=== PATIENT | male | born 1985 | race Two or more races ===

== ENCOUNTER 2021-06-23 09:20 | Day surgery (SDC) | payer BC ==
[~2021-06-23] VITALS: Ht 180.3 cm; Wt 110.0 kg
[2021-06-23] MEDS ORDERED: PROPOFOL 10 MG/ML (20ML) VIAL. IV ONE (09:33)
[2021-06-23] MEDS ORDERED: fentaNYL PF VIAL 100 MCG/2 ML VIAL ONE ×2 (09:34→12:50)
[2021-06-23] MEDS ORDERED: ROCURONIUM 50 MG/5 ML VIAL. ONE (09:34)
[2021-06-23] MEDS ORDERED: ONDANSETRON PF 4 MG/2 ML VIAL. ONE (09:36)
[2021-06-23] MEDS ORDERED: DEXAMETHASONE SOD PHOS 4 MG/ML VIAL ONE (09:36)
[2021-06-23 09:43] VITALS: BP 146/77
--- NOTE | 2021-06-23 09:52 | NUR ---
1ml IV given from spy kit
[2021-06-23] MEDS ORDERED: KETAMINE HCL IN NACL, ISO-OSM 50 MG/5 ML SYRINGE ONE (11:19)
[2021-06-23] MEDS ORDERED: BUPIVACAINE-EPI 0.25%-1:200000 MPF 30 ML VIAL. ONE (11:24)
[2021-06-23] MEDS ORDERED: SURGICEL HEMOSTAT 4X8 EACH. ONE (11:24)
[2021-06-23] MEDS ORDERED: DEXMEDETOMIDINE 200 MCG/2 ML VIAL. ONE (11:30)
--- NOTE | 2021-06-23 12:07 | PDOC4 ---
Operative Note Operative Note Date: June 232021 at 12:05 PM Preoperative diagnosis: Chronic cholecystitis cholelithiasis Postoperative diagnosis: Same Procedure: Laparoscopic cholecystectomy fluorescein cholangiography Surgeon: Akbar Specimen: Gallbladder Dictation: Patient is a 36-year-old male with right upper quadrant abdominal pain and the scan showing gallstones and mildly thickened gallbladder wall consistent with chronic cholecystitis. Procedure of laparoscopic cholecystectomy was explained to the patient detail risk benefits were also discussed including bleeding infection injury to intra-abdominal contents pus necessitating further open operation alternatives this procedure also discussed with patient who seemed to understand and gave a verbal written consent to have procedure performed. Patient was taken to the operating room placed in the supine position general anesthesia was initiated once patient was sleeping intubated his abdomen was prepped and draped in usual sterile fashion using ChloraPrep. Area just below the umbilicus was injected with quarter percent Marcaine with epinephrine incision was made 11 blade scalpel and a varies needle was placed within the abdomen creating pneumoperitoneum once this was complete the millimeter port was placed in a 5 mm camera was placed within the abdomen which was inspected no other abnormalities were noted. A 5 mm port was placed in the epigastrium a 5 mm port was placed in the right midabdomen and 5 mm ports placed in the right lateral abdomen all under direct visualization. The dome of the gallbladder is grasped retracted cephalad there was some adhesions to the body of the gallbladder these were taken down with blunt dissection the infundibulum the gallbladder is grasped tract laterally exposing the triangle adherent tissues the triangle were taken down exposing the cystic duct and cystic artery the fluorescein cholangiography was performed which showed dye within the cystic duct transversing to the common with no evidence of obstruction. The cystic duct was doubly clipped and transected the cystic artery was also clipped and transected the gallbladder was taken off the liver with hook electrocautery placed in Endo Catch bag moving the umbilicus right upper quadrant was irrigated and suctioned dry hemostasis deemed be appropriate the pneumoperitoneum was reduced all ports were removed the fascial defect at the umbilicus was closed with a [id number]-bhavs 0 Vicryl suture and the skin was reapproximated all port sites for subcuticular Monocryl Mastisol Steri-Strips and island dressings were applied. Patient was awakened and extubated in the operating room taken to recovery in stable condition all sponge instrument needle counts listed as correct estimated blood loss 20 mL CHAVO MCCLURE MD Jun 23, 2021 12:07
[2021-06-23] MEDS ORDERED: OXYC-325 PO (12:08)
--- NOTE | 2021-06-23 12:10 | DISCH ---
DISCHARGE INSTRUCTIONS Condition on Discharge Condition on Discharge: Stable Activity After Discharge Activity Instructions for Disc: Avoid exertion Other activity instructions: No lifting more than 20 pounds for 2 weeks Diet after Discharge Diet after Discharge: Low Fat Wound Incision Care Other wound/incision instructi: May shower in 24 hours Contacting the after DC Call your doctor for: If your condition worsens Follow-Up Follow up with: Dr. Mcclure in 2 CHAVO MCCLURE MD Jun 23, 2021 12:10
[2021-06-23] MEDS ORDERED: PROCHLORPERAZINE 10 MG/2 ML VIAL. IVP PRN (12:15)
[2021-06-23] MEDS ORDERED: IV RINGERS,LACTATED 1000ML 1,000 ML IV SCH (12:15)
[2021-06-23] MEDS ORDERED: HYDROmorphone 2 MG/ML INJ. IVP PRN (12:15)
[2021-06-23] MEDS ORDERED: fentaNYL PF VIAL 100 MCG/2 ML VIAL IVP PRN (12:15)
[2021-06-23] MEDS ORDERED: HYDROmorphone 2 MG/ML INJ. ONE (12:18)
[2021-06-23] MEDS ORDERED: oxyCODONE/APAP 5/325 1 TAB TABLET PO ONE (12:45)
[2021-06-23] MEDS: fentaNYL PF VIAL 100 MCG/2 ML VIAL IVP PRN ×2 (12:53→13:02)
[2021-06-23] MEDS ORDERED: MORPHINE SULFATE 2 MG/ML INJ. ONE (13:23)
[2021-06-23] MEDS ORDERED: PROCHLORPERAZINE 10 MG/2 ML VIAL. ONE (13:23)
[2021-06-23] MEDS: MORPHINE SULFATE 2 MG/ML INJ. IVP PRN ×2 (13:29→13:39)
[2021-06-23 14:30] VITALS: BP 110/54
--- NOTE | 2021-06-28 12:08 | PATHOLOGY ---
[facility] Accession Number: [id number] . 01 Material submitted: . gallbladder - GALLBLADDER . 01 Clinical history: . CHOLECYSTITIS . 02 Diagnosis: Gallbladder, excision: - Mild chronic cholecystitis with prominent eosinophil component. - Cholesterol polyps. - Lithiasis. - Negative for malignancy. (MLK:taran; 06/28/2021) QMS 06/28/2021 0737 Local . 02 Electronically signed: . Lori Kuhn MD, Pathologist NPI- [id number] . 01 Gross description: . Fixative: Formalin Labeled: Gallbladder Specimen received: An intact bladder specimen with a clipped cystic duct margin Dimensions: 7.1 x 3.6 x 0.4 cm Serosa: Purple-epps and smooth to slightly roughened Adventitia: Pereyra-yellow, shaggy and cauterized Lymph node: Not identified Mucosa: Velvety, bile-stained Average wall thickness: Up to 0.5 cm Calculi: Multiple present displaying a yellow-green, nodular appearance and ranging in size from 0.1-1.3 cm and measuring 4.5 x 3.7 cm in aggregate dimensions. Abnormalities: 2 papillary excrescences measuring 0.2 and 0.3 cm located 4.5 and 2.1 cm from the cystic duct margin. . A1- Enforcement Officer body, fundus, the cystic duct margin and 2 papillary excrescences. ([facility]; 06/24/2021) NRI/NRI 06/24/2021 0940 Local . 02 Pathologist provided ICD-10: K80.10, K82.4 . 02 CPT . 811137 Specimen Comment: A courtesy copy of this report has been sent to [phone] Specimen Comment: Report sent to Specimen Comment: A duplicate report has been generated due to demographic updates. Performed at: 01 [facility] [address] [facility] [address], [place] [id number] MD Darrius Mckeon MD Phone: [phone] Performed at: 02 [facility] [address] [place], [place] [id number] MD Basilio Fuller MD Phone: [phone]
== END 2021-06-23 14:50 | disposition home or self-care (01) ==
LOC: SURG 09:20
PROVIDERS: ATTEND Surgery
DX: K80.10 Calculus of gallbladder with chronic cholecystitis without obstruction (principal); Z79.899 Other long term (current) drug therapy; Z98.890 Other specified postprocedural states
CPT/HCPCS: 47563; A4930; J0690; J0780; J1100; J1170; J2270; J2405; J2704; J3010; J3490; 88304; A4657